=== PATIENT | male | born 1945 | race Caucasian/White ===

== ENCOUNTER 2018-01-07 16:13 | Inpatient (IN) | payer MEDICARE, OTHER ==
[~2018-01-07] VITALS: Ht 185.4 cm; Wt 124.5 kg
[2018-01-07 16:49] LABS: BASOPHILS % 0.2 % (0.0-1.0); EOSINOPHILS # (AUTO) 0.1 (0.0-0.4); EOSINOPHILS % 0.6 % (0.0-6.0); HEMATOCRIT 37.8 % (38.2-49.6); HEMOGLOBIN 13.2 g/dL (14.0-18.0); LYMPHOCYTES # (AUTO) 1.3 (1.0-3.2); LYMPHOCYTES % 9.9 % (18.0-39.1); MEAN CORPUSCULAR HEMOGLOBIN 30.2 pg (28-32); MEAN CORPUSCULAR HGB CONC 34.9 g/dL (31-35); MEAN CORPUSCULAR VOLUME 86.5 fL (81-99); MONOCYTES # (AUTO) 1.1 (0.2-0.8); MONOCYTES % 7.9 % (4.4-11.3); NEUTROPHILS # (AUTO) 10.7 (2.1-6.9); NEUTROPHILS % 80.4 % (38.7-80.0); PLATELET COUNT 319 x10e3/uL (140-360); RED BLOOD COUNT 4.37 x10e6/uL (4.3-5.7); RED CELL DISTRIBUTION WIDTH 13.5 % (11.7-14.4)
[2018-01-07 16:53] LABS: INR 1.02; PARTIAL THROMBOPLASTIN TIME 24.9 seconds (23.8-35.5); PROTHROMBIN TIME 12.6 seconds (11.9-14.5)
[2018-01-07 17:03] LABS: ALANINE AMINOTRANSFERASE 26 IU/L (0-55); ALBUMIN 3.5 g/dL (3.5-5.0); ALBUMIN/GLOBULIN RATIO 1.2 (0.8-2.0); ALKALINE PHOSPHATASE 91 IU/L (40-150); ANION GAP 12.4 mmol/L (8-16); BLOOD UREA NITROGEN 22 mg/dL (7-26); BUN/CREATININE RATIO 27 (6-25); CALCIUM 8.9 mg/dL (8.4-10.2); CARBON DIOXIDE 29 mmol/L (22-29); CHLORIDE 87 mmol/L (98-107); CREATINE KINASE 132 IU/L (30-200); CREATININE, SERUM 0.83 mg/dL (0.72-1.25); EST GLOMERULAR FILTRATION RATE > 60 ML/MIN (60-); GLUCOSE 193 mg/dL (74-118); MAGNESIUM 1.7 MG/DL (1.3-2.1); POTASSIUM 4.4 mmol/L (3.5-5.1); SODIUM 124 mmol/L (136-145)
--- NOTE | 2018-01-07 17:19 | Diagnostic Imaging Report ---
PROCEDURE: A single AP view of the chest. COMPARISON: None. INDICATIONS: SHORTNESS OF BREATH FINDINGS: Exam limited by patient rotation. Lines/tubes: None. Lungs: The lungs are well inflated and grossly clear. There is no evidence of pneumonia or pulmonary edema. Pleura: There is no pleural effusion or pneumothorax. Heart and mediastinum: Cardiac silhouette is unremarkable. Pulmonary vasculature is normal. Bones: No acute bony abnormality. IMPRESSION: 1. No acute cardiopulmonary abnormalities. Ian Etienne M.D. Dictated by: Ian Etienne M.D. on 01/07/2018 at 17:23 Electronically approved by: Ian Etienne M.D. on 01/07/2018 at 17:23
[2018-01-07 18:04] LABS: BILIRUBIN,URINE NEGATIVE (NEGATIVE); CLARITY,URINE CLEAR (CLEAR); COLOR,URINE YELLOW (YELLOW); KETONES,URINE NEGATIVE (NEGATIVE); LEUKOCYTE ESTERASE ,URINE NEGATIVE (NEGATIVE); NITRITE,URINE NEGATIVE (NEGATIVE); PROTEIN,URINE DIPSTICK NEGATIVE (NEGATIVE); URINE UROBILINOGEN 0.2 mg/dL (0.2 - 1)
[2018-01-07 18:14] LABS: AMORPHOUS SEDIMENT,URINE FEW (FEW); BACTERIA,URINE MODERATE /HPF; MUCUS,URINE FEW (RARE)
[2018-01-07 18:56] LABS: ABG PH 7.44 (7.31-7.41)
[2018-01-07 18:57] LABS: ABG HCO3 29 mmol/L (23-28); ABG PCO2 42 mmHg (41-51); ABG PO2 73 mmHg (80-105)
[2018-01-07] MEDS: SODIUM CHLORIDE 0.9% 1000ML 1,000 ML IV SCH (19:00)
[2018-01-07] MEDS: CEFTRIAXONE SOD 1 GM VIAL IV SCH (19:10)
[2018-01-07 21:03] VITALS: BP 150/79
[2018-01-07] MEDS ORDERED: LISINOPRIL10 MG PO (21:37)
[2018-01-07] MEDS ORDERED: ASPIRIN81 MG PO (21:37)
[2018-01-07] MEDS ORDERED: VITAMIN D32000 UNIT PO (21:37)
[2018-01-07] MEDS ORDERED: METFORMIN HCL500 MG PO ×2 (21:37)
[2018-01-07] MEDS ORDERED: LASIX40 MG PO (21:37)
[2018-01-07] MEDS ORDERED: MULTIVITAMINS1 EAC7 PO (21:37)
[2018-01-07] MEDS ORDERED: TRELEGY ELLIPTA INH (21:37)
[2018-01-07] MEDS ORDERED: PREDNISONE10 MG PO (21:37)
[2018-01-07] MEDS ORDERED: IPRATROPIU0.2 MG/1 M NEB (21:37)
[2018-01-07] MEDS ORDERED: SPIRONOLACTONE25 MG PO (21:37)
[2018-01-07] MEDS ORDERED: AMLODIPINE BESY10 MG PO (21:37)
[2018-01-07] MEDS ORDERED: NYSTATIN100000 UNI PO (21:37)
[2018-01-07] MEDS ORDERED: ALBUTEROL0.63 MG/3 INH (21:37)
[2018-01-07] MEDS ORDERED: DEXTROSE 50% SYRINGE 50 ML IV PRN (21:45)
--- NOTE | 2018-01-07 22:20 | Diagnostic Imaging Report ---
Exam: Head CT without contrast History: Altered mental status Comparison studies: Head CT 11/01/2010 Technique: Axial images were obtained from the skull base to the vertex. Coronal and sagittal images reconstructed from the axial data. Intravenous contrast: None Findings: Scalp: No abnormalities. Bones: No fractures, blastic or lytic lesions. Brain sulci: Mildly prominent Ventricles: Ex vacuo dilatation of the occipital horn of the right lateral due to ventricle due to chronic right [employer] insult described below. Mild compensatory dilatation draining ventricles. No hydrocephalus. Extra-axial spaces: No masses, no fluid collection. Parenchyma: No mass, acute hemorrhage or acute cortical vascular insults. Chronic vascular insult in the right [employer] territory with encephalomalacia in the right occipital lobe both above and below the calcarine fissure and within the precuneus gyrus of the right paramedian parietal lobe. There is an adjacent chronic lacunar insult in the right parietal gonsalves radiata adjacent to the posterior body of the right caudate nucleus as well as chronic lacunar infarct in the right brissa. A few scattered hypodensities in the supratentorial white matter are nonspecific but most compatible with chronic small vessel ischemic changes. Sellar/suprasellar region: No abnormalities. Craniocervical junction: Patent foramen magnum. No Chiari one malformation. Included paranasal sinuses: Fluid levels in the left maxillary sinus and bilateral sphenoid sinuses are mildly hyperdense and may reflect inspissated secretions or possibly hemorrhage. Incidental findings: Atherosclerotic calcifications in the carotid siphons. IMPRESSION: 1. No acute intracranial abnormalities. 2. Hyperdense fluid level in the maxillary and sphenoid sinuses. In the absence of facial trauma to suggest hemorrhage, findings presumably reflect inspissated secretions which could be correlated for acute sinusitis. Chronic findings: 1. Mild generalized volume loss. 2. Mild microvascular ischemic changes. 3. Chronic right [employer] territory vascular insult and lacunar insults in the brissa and deep right parietal white matter which were acute in 2010. Signed by: Dr. Breezy Naylor M.D. on 01/07/2018 10:17 PM
[2018-01-08] VITALS (8 sets, daily range): BP systolic 122–167; BP diastolic 61–88
[2018-01-08] MEDS: IPRATROPIUM BROMIDE 0.02% 2.5 ML NEB NEB SCH ×4 (01:00→19:05)
[2018-01-08] MEDS: ALBUTEROL SULF 0.083% NEB SOLN 3 ML NEB INH SCH ×4 (01:00→19:05)
[2018-01-08] MEDS ORDERED: HYDRALAZINE HCL 20 MG/ML VIAL IV PRN (04:45)
[2018-01-08] MEDS ORDERED: ACETAMINOPHEN 325 MG TAB PO PRN (04:45)
[2018-01-08] MEDS ORDERED: ONDANSETRON HCL INJ 2 MG/ML VIAL IV PRN (04:45)
[2018-01-08] MEDS: SODIUM CHLORIDE 0.9% 1000ML 1,000 ML IV SCH (05:56)
[2018-01-08] MEDS: CEFTRIAXONE SOD 1 GM VIAL IV SCH ×2 (06:16→19:15)
[2018-01-08 06:26] LABS: BASOPHILS % 0.3 % (0.0-1.0); EOSINOPHILS # (AUTO) 0.1 (0.0-0.4); EOSINOPHILS % 1.1 % (0.0-6.0); HEMOGLOBIN 13.3 g/dL (14.0-18.0); LYMPHOCYTES # (AUTO) 1.7 (1.0-3.2); LYMPHOCYTES % 14.3 % (18.0-39.1); MEAN CORPUSCULAR HEMOGLOBIN 30.1 pg (28-32); MONOCYTES # (AUTO) 1.3 (0.2-0.8); MONOCYTES % 11.2 % (4.4-11.3); NEUTROPHILS # (AUTO) 8.5 (2.1-6.9); NEUTROPHILS % 72.3 % (38.7-80.0); PLATELET COUNT 314 x10e3/uL (140-360); RED BLOOD COUNT 4.42 x10e6/uL (4.3-5.7); RED CELL DISTRIBUTION WIDTH 13.2 % (11.7-14.4)
[2018-01-08 06:46] LABS: ANION GAP 11.1 mmol/L (8-16); BLOOD UREA NITROGEN 14 mg/dL (7-26); BUN/CREATININE RATIO 19 (6-25); CALCIUM 8.9 mg/dL (8.4-10.2); CARBON DIOXIDE 27 mmol/L (22-29); CHLORIDE 88 mmol/L (98-107); CHOLESTEROL 116 MD/DL (0-199); CREATININE, SERUM 0.72 mg/dL (0.72-1.25); EST GLOMERULAR FILTRATION RATE > 60 ML/MIN (60-); GLUCOSE 125 mg/dL (74-118); HDL CHOLESTEROL 39 MG/DL (40-60); LDL CHOLESTEROL 61 MG/DL (60-130); MAGNESIUM 1.9 MG/DL (1.3-2.1); POTASSIUM 4.1 mmol/L (3.5-5.1); SODIUM 122 mmol/L (136-145); TRIGLYCERIDES 80 MG/DL (0-149)
[2018-01-08] MEDS ORDERED: SENNOSIDES 8.6 MG TAB PO PRN (07:00)
[2018-01-08 07:11] LABS: FREE T4 (FREE THYROXINE) 1.13 ng/dL (0.9-1.8)
[2018-01-08 07:15] LABS: B-TYPE NATRIURETIC PEPTIDE2 21.6 pg/mL (0-100)
[2018-01-08] MEDS: FAMOTIDINE 20 MG TAB PO SCH ×2 (07:30→16:30)
[2018-01-08] MEDS: INSULIN LISPRO 100 UNIT/1 ML 3ML VIAL SQ SCH ×4 (07:30→20:32)
[2018-01-08] MEDS: DOXYCYCLINE 100MG/NS 100ML 100 ML IV SCH ×2 (07:57→19:25)
[2018-01-08] MEDS ORDERED: SODIUM CHLORIDE 1 GM TAB PO ONE ×2 (08:15→20:00)
[2018-01-08 08:19] LABS: BLOOD UREA NITROGEN 14 mg/dL (7-26); GLUCOSE 125 mg/dL (74-118); OSMOLALITY,SERUM 248 mOsm/kg (278-305); SODIUM 122 mmol/L (136-145)
[2018-01-08] MEDS ORDERED: NON-FORMULARY MEDICATION (Cholecalciferol (Vitamin D3) (Vitamin D3) 2,000 UNIT) PO SCH (09:00)
[2018-01-08] MEDS: DOCUSATE SODIUM 100 MG CAP PO SCH ×2 (09:00→16:50)
[2018-01-08] MEDS ORDERED: TRELEGY ELLIPTA INH SCH (09:00)
[2018-01-08] MEDS: POLYETHYLENE GLYCOL 3350 17 GM PACK PO SCH ×2 (09:00→16:50)
[2018-01-08] MEDS: TRELEGY ELLIPTA INH SCH (09:00)
[2018-01-08] MEDS: LISINOPRIL 10 MG TAB PO SCH (09:16)
[2018-01-08] MEDS: PREDNISONE 10 MG TAB PO SCH (09:16)
[2018-01-08] MEDS: CHOLECALCIFEROL 1,000 UNIT TAB PO SCH (09:16)
[2018-01-08] MEDS: MULTIVITAMINS/MINERALS TAB PO SCH (09:16)
--- NOTE | 2018-01-08 10:42 | Consultation ---
DATE OF CONSULTATION: NEPHROLOGY CONSULTATION REASON FOR CONSULTATION: Hyponatremia. HPI: This is a 72-year-old male, morbidly obese, with known history of hypertension, hyperlipidemia, CVA, type 2 diabetes, COPD, CHF, who comes into the ED with bilateral lower extremity swelling and underlying confusion for concern for underlying narcolepsy episodes. The patient also reports having some epistaxis as well ongoing for the last 1 month. The patient was just discharged from [facility] last week for acute exacerbation of COPD. According to the family, the patient sleeps several times a day, about 20+ times per day. The patient denies any history of any hyponatremia in the past. Of note, recently was started on some Aldactone and Lasix for lower extremity edema. The patient denies any history of any increased water intake at home, any hypothyroidism or any blood pressure issues. The patient was seen and evaluated at bedside on the medical floor, and currently doing well with no other issues. He was sitting the [place] with no other complaints. He denies any history of acute kidney injury or any chronic kidney disease. REVIEW OF SYSTEMS: Pertinent positives are lower extremity edema. Multiple episodes of sleeping and epistaxis. Pertinent negatives: Denies any chest pain, palpitation, nausea, vomiting, diarrhea, dysuria, hematuria, frequency, urgency, lightheadedness, dizziness, abdominal pain, headache, shortness of breath, or any other complaints. The rest of the 14-point review of systems are reviewed with the patient and are negative. ALLERGIES: NO KNOWN DRUG ALLERGIES. HOME MEDICATIONS: He takes: 1. Amlodipine 10 mg p.o. at bedtime. 2. Aspirin 81 mg daily. 3. Cholecalciferol 2000 units p.o. daily. 4. Furosemide 20 mg daily. 5. Lisinopril 10 mg daily. 6. Metformin 1000 mg p.o. b.i.d. 7. Prednisone 10 mg daily. 8. Aldactone 50 mg p.o. b.i.d. 9. Aspirin 81 mg daily. PAST MEDICAL HISTORY: Hypertension, hyperlipidemia, CVA, type 2 diabetes, COPD, CHF, epistaxis. SURGICAL HISTORY: Reports none. FAMILY HISTORY: Diabetes, hypertension. SOCIAL HISTORY: One-pack per day of smoking daily. Alcohol none. Drugs none. He is . Good social support. PHYSICAL EXAMINATION VITAL SIGNS: Temperature 96, pulse 84, respiratory rate 20, blood pressure 147/88, pulse ox 96% on nasal cannula. GENERAL: Not in acute distress. Alert and oriented times 3 and cooperative on exam. HEENT: Head is normocephalic and atraumatic: Eyes: Pupils equal, round and reactive to light bilaterally. Extraocular muscles intact bilaterally. NECK: Supple. Good range of motion. Throat with no evidence of any erythema or exudates in the posterior pharynx. Has poor dentition. PULMONARY: Clear to auscultation bilaterally. No wheeze. No rales. No rhonchi. No crackles appreciated. CARDIOVASCULAR: Positive S1 and S2. No murmurs, rubs or gallops appreciated. ABDOMEN: Soft, nondistended and nontender to palpation. Bowel sounds present. MUSCULOSKELETAL: Strength is 5/5 throughout. No weakness of muscles on examination. No weakness appreciated. NEUROLOGICAL: Cranial nerves II-XII grossly intact. No evidence of any neurological deficit. SKIN: Intact. Warm to touch. Good cap refill. PSYCHIATRIC: Normal affect and mood. EXTREMITIES: He has 1-2+ pedal edema in bilateral lower extremities. LAB FINDINGS: White count is 11.8, hemoglobin 13.3, hematocrit 38, and platelets of 314,000. Coagulation: PT 12.6, INR 1 and PTT 25. Chemistry: Sodium 122, potassium 4.1, chloride 88, bicarb 27, anion gap of 11, BUN is 14, creatinine is 0.72, glucose is 125. Hemoglobin A1c is 7.3. Serum osmolality is 248. Calcium 8.9. Magnesium 1.9. BNP is 21. LDL 61, HDL 39, TSH 0.7. Free T4 1.1. Urinalysis with urine osmolality pending. UA is so far negative. MICROBIOLOGY: None. IMAGING STUDIES: Chest x-ray showed no acute cardiopulmonary abnormalities. CT of brain showed no acute intracranial abnormalities. There is some concern for acute sinusitis. There is some chronic right [employer] vascular insults in the past, but nothing acute. IMPRESSION 1. Hypotonic hypervolemic hyponatremic. 2. Metabolic encephalopathy with episodes of confusion. 3. Acute exacerbation of chronic obstructive pulmonary disease. 4. Epistaxis. 5. Type 2 diabetes. PLAN: At this time, will get serum osmol, urine osmol, urine sodium. Give total volume restriction of 1.2 L total in a day. Give 2 g p.o. salt tabs times 1 now. Repeat sodium level at 1700 later today. Discussed with nursing staff. TSH is normal. If his sodium does rise slightly, will give him some Lasix. May need some more salt tabs once we get our sodium level at 1700. Will continue to monitor closely. It seems like also he was on Lasix and Aldactone at home leading to his underlying hyponatremia as well. This also could be contributing to his underlying confusion as well. Will continue to monitor. Thank you so much for this consultation. Will continue to follow with you. Job#: [id number] AUDREY
--- NOTE | 2018-01-08 15:30 | Consultation ---
DATE OF CONSULTATION: January 08, 2018 NEUROLOGY CONSULTATION HISTORY OF PRESENT ILLNESS: Mr. Romero is a 72-year-old, [id number] man brought to the emergency center at [facility] on January 07, 2018, with shortness of breath, lower extremity edema, epistaxis, and confusion/disorientation. Patient was referred here by his primary care physician. Within the past week, the patient was hospitalized at another facility for congestive heart failure and an acute exacerbation of chronic obstructive pulmonary disease. He was hospitalized for 2 days, then discharged. When he saw his primary care physician following his discharge from the hospital and endorsed continued shortness of breath, lower extremity edema and other symptoms, his primary care physician instructed him to proceed to the emergency center at [facility] for further evaluation. The patient was diagnosed with COPD approximately 1 month ago. He was placed on supplemental oxygen this past week. While undergoing an initial evaluation, the primary service became concerned regarding "narcoleptic episodes." A neurology consultation was ordered for further evaluation. The patient sleeps in a recliner. He falls asleep sometime after 11:30 at night and awakens at approximately 4 a.m. every day. The patient does snore. It is unknown if he has apneic episodes. When he awakens, the patient does not feel well rested. Mr. Romero is known to fall asleep multiple times per day, every day. He will sleep for a few minutes. As he is sleeping, he will often lean to one side or the other. As he begins to lean, this startles him awake. Occasionally, when the patient awakens, he is disoriented. He returns to his neurological baseline within 1 to 2 minutes. The patient's estimates the above episodes occur 5 to 6 times per hour. Neither the patient nor his endorse a history of cataplexy. The patient's reports that the patient may fall asleep while stopped at a traffic light. He is likely to fall asleep when he is the passenger in a car. He often falls asleep in the middle of meals or conversations. Mr. Romero has previously undergone a sleep study. This was performed in 2009. The results of this study are unknown. REVIEW OF SYSTEMS: As per history of present illness. Otherwise, the 12-point review of systems is negative. 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 PAST SURGICAL HISTORY: None. PAST HOSPITALIZATIONS: Congestive heart failure and acute exacerbation of COPD in December 2017. FAMILY HISTORY: The patient's paternal and maternal grandparents are . Their medical histories are unknown. The patient's father is from melanoma. The patient's mother is from hypertension and coronary artery disease. The patient has a sister who is alive and has hypertension. Mr. Romero has a brother who is from pneumonia. Patient has 2 daughters and 1 son. All are alive and healthy. SOCIAL HISTORY: Patient is . He graduated high school and attended some college. He is retired. The patient does endorse tobacco use. He has smoked 1 pack per day for the past 50 years. The patient does not report current or prior alcohol or recreational drug use. HOME MEDICATIONS 1. Albuterol 0.63 mg per 3 mL inhaled every 6 hours. 2. Norvasc 10 mg by mouth at bedtime daily. 3. Aspirin 81 mg by mouth at bedtime. 4. Vitamin D3 2,000 units by mouth daily. 5. Lasix 40 mg by mouth daily. 6. Ipratropium bromide 0.2 mg per 1 mL, 2.5 mL nebulized every 6 hours. 7. Lisinopril 10 mg by mouth daily. 8. Metformin 500 mg by mouth at bedtime daily. 9. Metformin 1,000 mg by mouth before breakfast daily. 10. Multivitamin 1 tablet by mouth daily. 11. Nystatin 100,000 units per 1 mL oral suspension 5 mL by mouth daily. 12. Prednisone 10 mg by mouth daily for 3 days. 13. Spironolactone 50 mg by mouth twice daily. 14. Trelegy Ellipta 1 inhaled daily. ALLERGIES: NO KNOWN DRUG ALLERGIES. NO KNOWN FOOD ALLERGIES. NO KNOWN ALLERGIES TO LATEX. NO KNOWN ALLERGIES TO IODINE OR OTHER CONTRAST MATERIALS. PHYSICAL EXAMINATION VITAL SIGNS: Height 73 inches, weight 253 lbs, BMI 33.4 kg per meter squared. Blood pressure 147/88 mmHg. Pulse 84 beats per minute. Respiratory rate 20 breaths per minute. Oxygen saturation 96% on 4 liters by nasal cannula. GENERAL: The patient is somnolent, but arouses to verbal stimuli. He does not appear distressed. Obese. HEENT: Normocephalic, atraumatic. Pupils are equal, round and reactive to light. Moist mucous membranes. NECK: Supple. No appreciable thyromegaly. No appreciable carotid bruits. CARDIOVASCULAR: S1, S2, regular rate and rhythm. No murmurs, rubs, or gallops. RESPIRATORY: Mild expiratory wheezing throughout all lung garcia posteriorly. EXTREMITIES: The skin is warm and dry. No clubbing, cyanosis, or edema. The posterior tibial and dorsalis pedis pulses are 1+ and symmetric. SKIN: Venous stasis ulcerations over the distal forelegs. NEUROLOGIC EXAMINATION MEMORY/ATTENTION: The patient is somnolent, but arouses to verbal stimuli. CRANIAL NERVES: Cranial nerve I: Not tested. Cranial nerves II, III, IV, and : Pupils are equal and round, react briskly to light (from 4 mm to 2 mm). Extraocular movements are intact. No nystagmus. Visual garcia are unreliable. Cranial nerve V: Sensation to light touch and pinprick is intact in the bilateral V1 through V3 distributions. Strength of the temporalis and masseter muscles is within normal limits. Cranial nerve VII: The face is symmetric as are all facial movements. Strength is within normal limits. Cranial nerve VIII: Hearing is diminished to finger rub bilaterally. Cranial nerves IX and X: The soft palate elevates equally and symmetrically. Cranial nerve XI: Normal strength of the bilateral sternocleidomastoid and trapezius muscles. Cranial nerve XII: The tongue protrudes midline and moves symmetrically from side to side. STRENGTH: Bulk is normal. Strength is 5/5 in the bilateral deltoids, biceps, triceps, wrist flexors and extensors, finger flexors and extensors, intrinsic hand muscles, hip flexors, knee flexors and extensors, ankle dorsiflexion and plantarflexion, and intrinsic foot muscles. Tone is normal. DTRs: Deep tendon reflexes are 1+ and symmetric at the triceps, biceps, brachioradialis and patellas. Deep tendon reflexes are absent and symmetric at the Achilles. Plantar responses are flexor bilaterally. SENSATION: Sensation is intact to light touch and pinprick in both arms and both legs. CEREBELLAR: Unable to assess secondary to somnolence. GAIT: Deferred. SPEECH: Spontaneous speech is dysarthric without aphasia. Repetition is intact. INVOLUNTARY MOVEMENTS: None. PRONATOR DRIFT: None. LABORATORY DATA: Sodium 122, potassium 4.1, chloride 88, carbon dioxide 27, anion gap 11.1. BUN 14, creatinine 0.72, estimated GFR greater than 60. HTX-ss-jbdrqxjvqv ratio 19. Glucose 125, calcium 8.9, magnesium 1.9. Total cholesterol 116, triglycerides 80, LDL cholesterol 61, HDL cholesterol 39. TSH 0.710. Free T4 1.13. B natriuretic peptide 21.6. From January 07, 2018, total bilirubin 0.8, AST 18, ALT 26, alkaline phosphatase 91, total protein 6.4, albumin 3.5, globulin 2.9, yqbagca-xk-binehzii ratio 1.2. Creatine kinase 132, CK-MB 4.00, troponin I 0.001. CBC with differential and platelets revealed a white blood cell count of 11.82 with 72.3% neutrophils, 14.3% lymphocytes, 11.2% monocytes, 1.1% eosinophils and 0.3% basophils. Hemoglobin and hematocrit are 13.3 and 38.0, respectively. The platelet count is 314. PT 12.6, INR 1.02, PTT 24.9. From January 07, 2018, arterial blood gas revealed pH of 7.44, pCO2 42, pO2 of 73, bicarbonate 29. Oxygen saturation 95%. Base excess 4.0. Fi02 21%. Urinalysis is significant for moderate bacteria and few mucus. DIAGNOSTIC STUDIES 1. Electrocardiogram of 01/07/2018: Normal sinus rhythm at 92 beats per minute. 2. Chest x-ray, 01/07/2018: No acute cardiopulmonary abnormalities. 3. CT of the brain without contrast, 01/07/2018: On my review, there is no evidence of recent large territorial ischemia, hemorrhage, mass, or mass effect. There is diffuse cerebral atrophy, appropriate for the patient's age. There are findings compatible with mild to moderate chronic small vessel ischemic disease. There is a chronic right posterior cerebral artery distribution stroke as well as lacunar strokes in the brissa and deep parietal white matter on the right. 4. Bilateral carotid artery ultrasound with Doppler, 01/08/2018: Results pending. 5. Extremity venous study, 01/08/2018: Results pending. ASSESSMENT AND PLAN: Mr. Romero is a 72-year-old, [id number] man with past medical history as detailed, admitted with dehydration, hyponatremia, confusion, and somnolence. On general physical examination, the patient is observed to fall asleep repeatedly (at least 6 times) during the encounter. Otherwise, his neurological examination is nonfocal. Patient's laboratory data and other diagnostic studies have been reviewed and are documented above. The neurology service was consulted due to concerns for narcolepsy. However, based on the patient's history and my observations, I strongly suspect Mr. Romero has severe obstructive sleep apnea. RECOMMENDATIONS: The patient requires a polysomnogram to confirm a diagnosis of obstructive sleep apnea. If there continues to be concern for narcolepsy, a multiple sleep latency test can be performed immediately after the polysomnogram. These studies cannot be performed in the hospital, they will have to be ordered as an outpatient. There are no other recommendations from the neurology service at this time. Please call again with any questions or concerns. Time spent: 50 minutes. Job#: [id number] TIMMY SOFIA
--- NOTE | 2018-01-08 16:57 | Consultation ---
DATE OF CONSULTATION: January 08, 2018 HISTORY OF PRESENT ILLNESS: I was kindly asked to evaluate this 72-year-old man for epistaxis. Patient presented to my office on 01/06/2018 with profuse bleeding from the left side of his nose which had necessitated packing in the emergency department. Presented with the packing in place and the packing was removed. He was found to have an arterial bleeder in the mid portion of the left nasal septum. This was cauterized with bipolar cautery. However, he continued to have slight oozing and the nose was packed with Merocel packing. Since the bipolar cautery, he has had no further episodes of epistaxis. His history of present illness, past medical history and past surgical history were reviewed in detail in the chart. PHYSICAL EXAMINATION: The tympanic membranes and external auditory canals are unremarkable. The right side of the nose has expected post cautery changes of the anterior nasal septum. Left side of the nose had Merocel packing. There was no active bleeding noted. Oral and pharyngeal examination were unremarkable. There was no palpable cervical adenopathy. His admission INR and hemoglobin were reviewed as unremarkable. ASSESSMENT: Epistaxis controlled with current measures. PLAN: Continuation of Merocel packing until January 11. Job#: [id number]
[2018-01-08] MEDS: ASPIRIN 81 MG CHEW TAB PO SCH (20:32)
[2018-01-08] MEDS: AMLODIPINE BESYLATE 10 MG TAB PO SCH (20:32)
[2018-01-09] VITALS (25 sets, daily range): BP systolic 104–177; BP diastolic 56–95
[2018-01-09] MEDS: IPRATROPIUM BROMIDE 0.02% 2.5 ML NEB NEB SCH ×4 (00:45→19:10)
[2018-01-09] MEDS: ALBUTEROL SULF 0.083% NEB SOLN 3 ML NEB INH SCH ×4 (00:45→19:10)
[2018-01-09 03:51] LABS: BASOPHILS % 0.2 % (0.0-1.0); EOSINOPHILS # (AUTO) 0.2 (0.0-0.4); EOSINOPHILS % 1.5 % (0.0-6.0); HEMOGLOBIN 12.6 g/dL (14.0-18.0); LYMPHOCYTES # (AUTO) 1.5 (1.0-3.2); MEAN CORPUSCULAR HEMOGLOBIN 30.2 pg (28-32); MEAN CORPUSCULAR VOLUME 86.3 fL (81-99); MONOCYTES # (AUTO) 1.1 (0.2-0.8); MONOCYTES % 10.1 % (4.4-11.3); NEUTROPHILS # (AUTO) 7.7 (2.1-6.9); NEUTROPHILS % 73.5 % (38.7-80.0); PLATELET COUNT 270 x10e3/uL (140-360); RED BLOOD COUNT 4.17 x10e6/uL (4.3-5.7); RED CELL DISTRIBUTION WIDTH 13.4 % (11.7-14.4)
[2018-01-09 04:07] LABS: ANION GAP 11.4 mmol/L (8-16); BLOOD UREA NITROGEN 10 mg/dL (7-26); BUN/CREATININE RATIO 14 (6-25); CALCIUM 8.8 mg/dL (8.4-10.2); CARBON DIOXIDE 27 mmol/L (22-29); CHLORIDE 91 mmol/L (98-107); EST GLOMERULAR FILTRATION RATE > 60 ML/MIN (60-); GLUCOSE 127 mg/dL (74-118); MAGNESIUM 1.8 MG/DL (1.3-2.1); POTASSIUM 4.4 mmol/L (3.5-5.1); SODIUM 125 mmol/L (136-145)
[2018-01-09] MEDS ORDERED: FUROSEMIDE INJ 10 MG/ML 2 ML VIAL IV ONE (06:00)
[2018-01-09] MEDS: INSULIN LISPRO 100 UNIT/1 ML 3ML VIAL SQ SCH ×4 (07:30→20:22)
[2018-01-09] MEDS: MULTIVITAMINS/MINERALS TAB PO SCH (08:43)
[2018-01-09] MEDS: CEFTRIAXONE SOD 1 GM VIAL IV SCH ×2 (08:43→18:04)
[2018-01-09] MEDS: FAMOTIDINE 20 MG TAB PO SCH ×2 (08:43→17:25)
[2018-01-09] MEDS: PREDNISONE 10 MG TAB PO SCH (08:43)
[2018-01-09] MEDS: DOCUSATE SODIUM 100 MG CAP PO SCH ×2 (08:43→17:25)
[2018-01-09] MEDS: DOXYCYCLINE 100MG/NS 100ML 100 ML IV SCH ×2 (08:43→18:04)
[2018-01-09] MEDS: POLYETHYLENE GLYCOL 3350 17 GM PACK PO SCH ×2 (08:43→17:25)
[2018-01-09] MEDS: CHOLECALCIFEROL 1,000 UNIT TAB PO SCH (08:44)
[2018-01-09] MEDS: LISINOPRIL 10 MG TAB PO SCH (08:44)
[2018-01-09] MEDS: TRELEGY ELLIPTA INH SCH (09:00)
[2018-01-09] MEDS ORDERED: SODIUM CHLORIDE 1 GM TAB PO ONE (09:00)
[2018-01-09 11:41] LABS: ABG HCO3 30 mmol/L (23-28); ABG PCO2 47 mmHg (41-51); ABG PH 7.41 (7.31-7.41); ABG PO2 71 mmHg (80-105)
--- NOTE | 2018-01-09 14:39 | Consultation ---
DATE OF CONSULTATION: PULMONARY CONSULTATION PRIMARY CARE PHYSICIAN: Dr. Weeks CHIEF COMPLAINT: Patient was admitted initially with the complaint of confusion and nosebleed. HPI: Mr. Romero is a 72-year-old male. He is going to sleep while giving me history. The is at the bedside. reported that for last 3 months off and on she has noticed the patient's snoring has gotten worse, and he has been having episodes of extreme sleepiness while he is talking, eating and watching TV or on the computer. Lately, he has been diagnosed with COPD with his primary care physician and was started on oxygen as well. Patient started having episodes of nosebleeds, a few episodes in the last 2 to 3 months, and recently also had nosebleed. Patient was sent to the hospital. He was discharged from [facility] last week. There he was admitted for acute exacerbation of COPD. Patient was seen by ENT physician, Dr. Paulino Pratt, and he cauterized the artery and did a packing for epistaxis. Currently, he is denying any complaints of chest pain. He has some shortness of breath, which is not away from his baseline. However, his extreme sleepiness is still there. He has been sleeping while talking to me. He has never been diagnosed with narcolepsy or obstructive sleep apnea. 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 During his early years, he never had issues about increasing somnolence. REVIEW OF SYSTEMS GENERAL: Denies any fever or chills. HEAD: Denies any head trauma. ENT: Denies any earache. CVS: Denies any chest pain. RESPIRATORY: Denies any shortness of breath. Mild dyspnea because of his COPD. OTHER: The rest of the review of systems are negative except as in HPI. PAST MEDICAL HISTORY: Hypertension, hyperlipidemia, history of stroke, type-2 diabetes, reported COPD. There is no pulmonary function test available in [facility] records. Recent episodes of epistaxis. FAMILY AND SOCIAL HISTORY: He smoked for 50-plus years 1 pack per day. Currently, he is not smoking. He denies any family history of heart disease or cancer. Denies any alcohol use. PHYSICAL EXAMINATION VITAL SIGNS: Temperature 97.5, pulse of 82, blood pressure 177/86. Respiratory rate of 18. O2 sat 93% on 4 liters. HEENT: Head is atraumatic, normocephalic. NECK: Supple. No JVD. Thyroid is not enlarged. CHEST: Clear to auscultation bilaterally with no wheezing, no crackles. HEART: S1, S2 audible. No murmurs, gallops or rub. ABDOMEN: Soft, nontender. EXTREMITIES: There is 2+ pedal edema. No clubbing or cyanosis. NEUROLOGIC: Sleepy. Arousable. Oriented to time, place and person. No focal neurologic deficit. LABORATORY DATA: White count of 10,000, hemoglobin 12.6, platelets 270. Chemistry: Sodium 125, potassium 4.4. Chloride 91, BUN 10, creatinine 0.7. When he came in, his sodium was 124. The patient's TSH is 0.7, and free T4 is 1.13, which is normal. The patient had a chest x-ray done, which is showing no acute cardiopulmonary abnormalities. I reviewed the images. Brain CT just showed microvascular ischemic changes. ASSESSMENT: Mr. Romero is a 72-year-old male with extreme daytime sleepiness, epistaxis, history of snoring. Differential can be obstructive sleep apnea and narcolepsy. Patient has been hyponatremic, and nephrology has deemed the patient probably has hypovolemic hyponatremia. Central sleep apnea or central events cannot be ruled out. PLAN 1. At this point I will start the patient on BiPAP and move patient to [facility]. Discussed with Dr. Pratt. He is agreeable to use BiPAP with nasal packing as the patient has nasal packing for epistaxis. 2. I will do ABG. Last ABG was done on the which had normal pCO2. If he has daytime hypercapnia, that will qualify him for possible noninvasive ventilation for obesity-hypoventilation syndrome. He will definitely need an outpatient sleep study to evaluate for narcolepsy along with sleep apnea and may need MSLT as well. 3. Continue the nebulizer treatment for possible COPD as the patient has smoking history. He will need pulmonary function test as well to evaluate for COPD. The plan was discussed with the patient's at bedside in detail. Job#: [id number]
[2018-01-09] MEDS ORDERED: FUROSEMIDE INJ 10 MG/ML 4 ML VIAL IV NR (17:45)
[2018-01-09] MEDS ORDERED: SODIUM CHLORIDE 1 GM TAB PO NR (17:45)
[2018-01-09] MEDS: ASPIRIN 81 MG CHEW TAB PO SCH (20:35)
[2018-01-09] MEDS: AMLODIPINE BESYLATE 10 MG TAB PO SCH (20:35)
[2018-01-10] VITALS (29 sets, daily range): BP systolic 82–160; BP diastolic 50–139
[2018-01-10] MEDS: IPRATROPIUM BROMIDE 0.02% 2.5 ML NEB NEB SCH ×2 (01:20→07:50)
[2018-01-10] MEDS: ALBUTEROL SULF 0.083% NEB SOLN 3 ML NEB INH SCH ×2 (01:20→07:50)
[2018-01-10 03:25] LABS: BASOPHILS % 0.3 % (0.0-1.0); EOSINOPHILS # (AUTO) 0.1 (0.0-0.4); EOSINOPHILS % 0.9 % (0.0-6.0); HEMATOCRIT 38.1 % (38.2-49.6); HEMOGLOBIN 13.1 g/dL (14.0-18.0); LYMPHOCYTES # (AUTO) 1.4 (1.0-3.2); LYMPHOCYTES % 14.1 % (18.0-39.1); MEAN CORPUSCULAR HEMOGLOBIN 30.1 pg (28-32); MEAN CORPUSCULAR HGB CONC 34.4 g/dL (31-35); MEAN CORPUSCULAR VOLUME 87.6 fL (81-99); NEUTROPHILS # (AUTO) 7.5 (2.1-6.9); NEUTROPHILS % 74.1 % (38.7-80.0); PLATELET COUNT 275 x10e3/uL (140-360); RED BLOOD COUNT 4.35 x10e6/uL (4.3-5.7); RED CELL DISTRIBUTION WIDTH 13.5 % (11.7-14.4)
[2018-01-10 03:44] LABS: ALANINE AMINOTRANSFERASE 27 IU/L (0-55); ALBUMIN 3.6 g/dL (3.5-5.0); ALKALINE PHOSPHATASE 80 IU/L (40-150); ANION GAP 13.1 mmol/L (8-16); BILIRUBIN,DIRECT 0.3 mg/dL (0.0-0.5); BLOOD UREA NITROGEN 11 mg/dL (7-26); BUN/CREATININE RATIO 15 (6-25); CALCIUM 9.2 mg/dL (8.4-10.2); CARBON DIOXIDE 28 mmol/L (22-29); CHLORIDE 93 mmol/L (98-107); CREATININE, SERUM 0.74 mg/dL (0.72-1.25); EST GLOMERULAR FILTRATION RATE > 60 ML/MIN (60-); GLUCOSE 118 mg/dL (74-118); MAGNESIUM 1.9 MG/DL (1.3-2.1); POTASSIUM 4.1 mmol/L (3.5-5.1); SODIUM 130 mmol/L (136-145)
[2018-01-10] MEDS: DOXYCYCLINE 100MG/NS 100ML 100 ML IV SCH (07:00)
[2018-01-10] MEDS: INSULIN LISPRO 100 UNIT/1 ML 3ML VIAL SQ SCH ×2 (08:00→11:30)
[2018-01-10] MEDS: TRELEGY ELLIPTA INH SCH (09:00)
[2018-01-10] MEDS: POLYETHYLENE GLYCOL 3350 17 GM PACK PO SCH ×2 (09:00→09:58)
[2018-01-10] MEDS: CEFTRIAXONE SOD 1 GM VIAL IV SCH (09:57)
[2018-01-10] MEDS: PREDNISONE 10 MG TAB PO SCH (09:58)
[2018-01-10] MEDS: MULTIVITAMINS/MINERALS TAB PO SCH (09:58)
[2018-01-10] MEDS: FAMOTIDINE 20 MG TAB PO SCH (09:58)
[2018-01-10] MEDS: DOCUSATE SODIUM 100 MG CAP PO SCH (09:58)
[2018-01-10] MEDS: LISINOPRIL 10 MG TAB PO SCH (09:59)
[2018-01-10] MEDS: CHOLECALCIFEROL 1,000 UNIT TAB PO SCH (09:59)
[2018-01-10] MEDS ORDERED: DOXYCYCLINE HY100 MG PO (11:17)
[2018-01-10] MEDS ORDERED: SPIRONOLACTONE25 MG PO (11:21)
[2018-01-10] MEDS ORDERED: MUCINEX DM ER1 EACH PO (11:22)
--- NOTE | 2018-01-10 20:46 | Discharge Summary ---
No dictation 00:37 seconds DOLORES SAINI MD Job#: [id number]
--- NOTE | 2018-01-12 10:07 | Discharge Summary ---
ADMISSION DIAGNOSES 1. Confusion with possible narcoleptic episodes/sleep apnea. 2. Acute exacerbation of chronic obstructive pulmonary disease. 3. Epistaxis. 4. Hyponatremia. 5. Hypertension. 6. Type-2 diabetes. 7. Hyperlipidemia. 8. Congestive heart failure. 9. Leukocytosis. DISCHARGE DIAGNOSES 1. Confusion with possible narcoleptic episodes/sleep apnea. 2. Acute exacerbation of chronic obstructive pulmonary disease. 3. Epistaxis. 4. Hyponatremia. 5. Hypertension. 6. Type-2 diabetes. 7. Hyperlipidemia. 8. Congestive heart failure. 9. Leukocytosis. HISTORY: Patient has a history of hypertension, hyperlipidemia, CVA, type-2 diabetes, COPD, CHF, epistaxis. HOSPITAL COURSE: A 72-year-old male complains of bilateral lower extremity swelling, confusion with frequent falling asleep during days, shortness of breath, and epistaxis, all beginning within the last month per . Patient was discharged from [facility] last week due to exacerbation of COPD. He was not on antibiotics. Per , patient falls asleep 20 plus times per day lasting about a minute or 2 each time. When he awakens, he is confused for about a minute or 2. He has had increased confusion and admits to falls. works and is unable to care for him at times. He has also had multiple nosebleeds. He was supposed to follow up with Dr. Pratt for removal of a left naris packing on day of admission. His nosebleeds have required 2 ER visits. On admission, Dr. Pratt, as well as neuro and pulmonary were consulted. Initially, per neuro, patient has obstructive sleep apnea. 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 According to both specialities, patient will have to follow up for sleep studies outpatient. Prior to admission, patient had arterial and Doppler lower extremity scans due to the swelling. On November 11, patient had arterial Doppler that showed no stenosis bilaterally and bilateral lower extremity venous Doppler, which showed no DVTs. An echo showed 55%-60% EF. EKG on admission was sinus rhythm. Carotid Doppler showed no evidence of significant stenosis bilaterally. On admission, patient's sodium was found to be in the 120s. He was on Aldactone, which was stopped on admission. He was initially given fluids, but the fluids were stopped per nephrology. After stopping the diuretics, the patient's sodium increased on its own. Patient was started on doxycycline and Mucinex for acute exacerbation of COPD. He uses oxygen at home already. Per pulmonary request, patient was started on BiPAP just to see how he will do. Patient refused to use it. On day of discharge, patient is much less confused and ready to go home. is at bedside. Discharge plan discussed with and patient and both agree. Patient has not been to outpatient sleep study, but discussed the importance of it. Patient was sent home on home medications. He stopped the Aldactone 50 b.i.d. He was started on Aldactone 12.5 daily just to his potassium since he is on Lasix 40 daily. He still has bilateral lower extremity swelling, but it has improved. He will discharge with Mucinex, doxycycline for 5 more days, and spironolactone 12.5 daily, as well as his other home medications. He will follow up with neurology and pulmonology, as well as PCP in 1-[address] of the brain was negative. MRI of the brain was negative. Urine culture negative. LABS ON DAY OF DISCHARGE: WBC 10, hemoglobin 13, hematocrit 38, platelet 275,000. Sodium 130, potassium 4.1, creatinine 0.74, GFR of over 60. Left naris packing left in place at the time of discharge. Per Dr. Pratt, the packing will be taken out the following day. Patient discharged home today with walker. He was instructed, as well as his to ensure someone was with him at all times to ensure his safety. They, again, agreed with the plan. Dictated By: Shaila Uriarte NP DOLORES SAINI MD Job#: [id number]
== END 2018-01-10 12:30 | disposition home or self-care (01) | DRG 190 ==
LOC: ER 16:13 → ERHOLD 18:48 → MED/SURG 20:36 → ICU 01-09 19:33
PROVIDERS: ADMIT Internal Medicine; ATTEND Internal Medicine
DX: J44.1 Chronic obstructive pulmonary disease with (acute) exacerbation (principal); G93.41 Metabolic encephalopathy; N30.00 Acute cystitis without hematuria; E87.1 Hypo-osmolality and hyponatremia; I69.354 Hemiplegia and hemiparesis following cerebral infarction affecting left non-dominant side; D72.829 Elevated white blood cell count, unspecified; G47.419 Narcolepsy without cataplexy; E11.9 Type 2 diabetes mellitus without complications; I11.0 Hypertensive heart disease with heart failure; I50.9 Heart failure, unspecified; R04.0 Epistaxis; E78.5 Hyperlipidemia, unspecified; E66.9 Obesity, unspecified; G47.33 Obstructive sleep apnea (adult) (pediatric); Z68.33 Body mass index [BMI] 33.0-33.9, adult; Z99.81 Dependence on supplemental oxygen
CPT/HCPCS: 36415; 36600; 70450; 71045; 80048; 80053; 80061; 80076; 81001; 82140; 82550; 82553; 82805; 82947; 82948; 83036; 83735; 83880; 83935; 84295; 84300; 84439; 84443; 84484; 84520; 85025; 85610; 85730; 87086; 93005; 93880; 93970; 94640; 94660; 97139; 99284; J0696; J1940; J7030